=== PATIENT | female | born 1950 | race Caucasian/White ===

== ENCOUNTER → 2016-07-04 | Outpatient (CLI) | payer OTHER ==
--- NOTE | 2016-07-04 13:50 | DIAGNOSTIC IMAGING REPORT ---
RIGHT LOWER EXTREMITY VENOUS DOPPLER CLINICAL HISTORY: Right leg pain and swelling. COMPARISON STUDY: No previous studies for comparison. TECHNIQUE: Sonography of the deep venous system of the right lower extremity was performed. Compression and augmentation were evaluated. FINDINGS: The right common femoral, superficial femoral and popliteal veins were compressible. Augmentation was normal. Flow was shown within the deep calf vessels. Note is made of a 7.8 x 4.9 x 1.3 cm elongated cystic abnormality the right popliteal fossa. IMPRESSION: 1. No evidence of deep venous thrombus within the right lower extremity. 2. 7.8 x 4.9 x 1.3 cm right popliteal cyst. Electronically signed by: Al Newton M.D. 07/04/2016 1:48 PM Dictated Date/Time: 07/04/2016 1:47 PM
== END | disposition home or self-care (01) ==
LOC: C.ULTRBC 12:45
PROVIDERS: ATTEND Physician Assistant
DX: M79.89 Other specified soft tissue disorders (principal); M71.21 Synovial cyst of popliteal space [Baker], right knee